=== PATIENT | female | born 1955 | race Caucasian/White ===

== ENCOUNTER 2018-01-11 00:58 | Inpatient (IN) | payer BC ==
[2018-01-10 13:34] LABS: INR 0.9
--- NOTE | 2018-01-10 19:59 | HISTORY AND PHYSICAL ---
DATE OF ADMISSION: January 11, 2018 IDENTIFICATION/CHIEF COMPLAINT Patrica is a 62-year-old woman with the chief complaint of left knee pain. HISTORY OF PRESENT ILLNESS The patient has a long-standing history of left knee arthritis, progressively painful and debilitating, refractory to conservative care. Surgery is indicated to relieve symptoms after failure of nonoperative measures. PAST MEDICAL HISTORY * Acid reflux disease. * Reactive airway disease, environmental allergen induced. * Remote history of bronchitis and pneumonia. . PAST SURGICAL HISTORY * Repair of hiatal hernia. * Cholecystectomy. * Hysterectomy. * Tonsillectomy. ALLERGIES * GLUTEN. * SOY. No known drug allergies. CURRENT MEDICATIONS * Nexium 40 mg p.o. q.day. * Bpem-mwk-ntyaauq Naproxen. * Djmn-tgh-pjyyths Tylenol. SOCIAL HISTORY Negative for tobacco and alcohol use. FAMILY HISTORY Notable for a brother with liver failure. REVIEW OF SYSTEMS Otherwise noncontributory. PHYSICAL EXAMINATION GENERAL: This is a healthy female. HEENT: Normocephalic, atraumatic. NECK: Supple. LUNGS: Clear. HEART: Regular. ABDOMEN: Soft. ORTHOPEDIC EXAM: Left knee has an effusion, crepitus is present. Stiff at the end range. Stability is good. Extensor function is intact. IMAGING Radiographs demonstrate end-stage knee arthritis. ASSESSMENT Left knee end-stage degenerative joint disease, progressively painful and debilitating, refractory to conservative care. PLAN Per patient request we are going to proceed with total knee arthroplasty. The nature of the procedure, risks, benefits and nonoperative alternatives were reviewed. The risks of the procedure include, but are not limited to , major medical or anesthetic complication, infection, neurovascular injury, blood transfusion, stiffness, scarring, fracture, tendon rupture or instability , implant loosening, migration or failure, persistent or recurrent pain, need for additional surgery and other unforeseen. She understands and wishes to proceed. A signed permit was placed in the chart. No guarantees are given or implied. JUAN
[~2018-01-11] VITALS: Ht 171.4 cm; Wt 125.2 kg
[2018-01-11] VITALS (14 sets, daily range): BP systolic 110–146; BP diastolic 63–82
[~2018-01-11 00:58] MED LIST: ACET-1966 PO; ESOM40CA42 PO; NAPR220C12 PO
[2018-01-11] MEDS ORDERED: ONDANSETRON 4 MG/2 ML VIAL ONE ×2 (07:59→10:11)
[2018-01-11] MEDS ORDERED: fentaNYL CITR 100 MCG/2 ML AMP ONE ×3 (07:59→13:05)
[2018-01-11] MEDS ORDERED: PROPOFOL EMUL(*) 10MG/ML 20 ML 20 ML ONE (07:59)
[2018-01-11] MEDS ORDERED: LIDOCAINE MPF 1% 5 ML VIAL ONE (07:59)
[2018-01-11] MEDS ORDERED: DEXAMETHASONE SOD 4 MG/ML VIAL ONE ×2 (07:59→10:12)
[2018-01-11] MEDS ORDERED: KETAMINE HCL 500 MG/10 ML VIAL ONE (08:02)
[2018-01-11] MEDS ORDERED: NORMOSOL R SOLN(*) 1000 ML BAG 1,000 ML IV PRN ×2 (08:45→12:30)
[2018-01-11] MEDS ORDERED: LIDOCAINE/SOD BICARB 8.4% SYR ID ONE (08:45)
[2018-01-11] MEDS ORDERED: MIDAZOLAM 2 MG/2 ML VIAL IVP PRN (08:45)
[2018-01-11] MEDS ORDERED: PREGABALIN 150 MG CAPSULE PO ONE (08:45)
[2018-01-11] MEDS ORDERED: TRANEXAMIC AC 1000 MG/10ML SDV 1,000 MG in DEXTROSE 5% 50 ML BAG 50 ML IV ONE (08:45)
[2018-01-11] MEDS ORDERED: ACETAMINOPHEN 500 MG TAB PO ONE (08:45)
[2018-01-11] MEDS ORDERED: cloNIDine EPIDUR INJ 100MCG/ML 40 MCG, ROPIVACAINE 0.5% 20 ML VIAL 25 ML, EPINEPHrine H... INJ ONE (08:45)
[2018-01-11] MEDS ORDERED: CELECOXIB 200 MG CAP PO ONE (08:45)
[2018-01-11] MEDS ORDERED: ceFAZolin(*) 2GM/D5W 50ML 50 ML IVPB ONE (08:45)
[2018-01-11] MEDS ORDERED: ZOLPIDEM TARTRATE 5 MG TAB PO PRN (12:30)
[2018-01-11] MEDS ORDERED: diphenhydrAMINE 25 MG CAP PO PRN (12:30)
[2018-01-11] MEDS ORDERED: ACETAMINOPHEN 325 MG TAB PO PRN (12:30)
[2018-01-11] MEDS ORDERED: BENZOCAINE/MENTHOL 1 EACH LOZG PO PRN (12:30)
[2018-01-11] MEDS ORDERED: diphenhydrAMINE 50 MG/ML VIAL IVP PRN (12:30)
[2018-01-11] MEDS ORDERED: FLUSH 10 ML SYR IVP PRN (12:30)
[2018-01-11] MEDS ORDERED: MAGNESIUM HYDROXIDE* 30ML UDCP PO PRN (12:30)
[2018-01-11] MEDS ORDERED: BISACODYL 10 MG SUPP PR PRN (12:30)
[2018-01-11] MEDS ORDERED: ALBUTEROL 8 GM INHALER INH PRN (14:05)
--- NOTE | 2018-01-11 14:14 | Hospitalist Consultation ---
History of Present Illness Requesting Physician Dr. Montiel Reason for Consult Medical Management Chief Complaint s/p left knee replacement History of Present Illness She was admitted s/p left knee replacement. It is reported the surgery went well and without complication. History Problems: (1) GERD (gastroesophageal reflux disease) Status: Chronic (2) Asthma due to environmental allergies Status: Chronic Home Meds Reported Medications Esomeprazole Magnesium (NEXIUM) 40 Mg Capsule.dr, 1 CAP PO QDAY, CAP 01/05/18 Acetaminophen (TYLENOL) 325 Mg Tablet, 650 MG PO Q8H Y for PAIN, TAB 01/05/18 Naproxen Sodium (ALEVE) 220 Mg Capsule, 440 MG PO BID Y for PAIN, CAPSULE 01/05/18 Allergies: Coded Allergies: No Known Drug Allergies (Unverified , 01/05/18) Patient History: Liver failure BROTHER OR SISTER Hx Smoking: No Caffeine Intake: Coffee, Tea, Soda Caffeine/Cups Per Day: 32 OZ DAILY OF COFFEE, 1 BOTTLE OF DIET PEPSI, OCC ICE TEA Hx Alcohol Use: No Hx Substance Use Disorder: No Social Drug Use: Never History of IV Drug Use: No Review of Systems All Systems Reviewed/Normal: Yes, Except as Noted Exam Vital Signs Vital Signs Date Time Temp Pulse Resp B/P (MAP) Pulse Ox O2 Delivery O2 Flow Rate FiO2 01/11/18 13:40 97.6 75 12 122/70 (87) 92 Room Air General Appearance: Alert, Awake, No Acute Distress, Afebrile Neuro: No Gross deficits Cardiovascular: Regular Rate and Rhythm Respiratory: No Respiratory Distress, Clear to Auscultation GI: Abd Soft and Non-Tender Extremities: Warm, Perfused Psych: Alert & Oriented X3, Appropriate Mood & Affect Assessment and Plan Problems: (1) Status post left knee replacement Status: Acute Assessment & Plan: Followed by Dr. Montiel. She will be placed on Aspirin 325mg daily for DVT prophylaxis. She has no history of DVT or PE. (2) GERD (gastroesophageal reflux disease) Status: Chronic Assessment & Plan: She is on chronic treatment with Nexium. She will be placed on Protonix during admission. (3) Asthma due to environmental allergies Status: Chronic Assessment & Plan: She uses albuterol inhaler as needed for allergies. Venous Thromboembolism Antithrombotics Is Pt On Any Antithrombotics?: No MARTINA MORRISON DOCUMENT MANAGEMENT SPECIALIST Jan 11, 2018 14:14
--- NOTE | 2018-01-11 14:25 | RADIOLOGY IMAGING REPORT ---
FACILITY: [facility] PATIENT NAME: Patrica Chou : 1955 MR: [id number] V: [id number] EXAM DATE: ORDERING PHYSICIAN: SONY CANTU TECHNOLOGIST: Location: [facility] Patient: Patrica Chou : 1955 Visit/Account:[id number] Date of Sevice: 01/11/2018 Exam type: KNEE LIMITED LEFT History: POST OP L TKA Comparison: None. Findings: AP and lateral views left knee history left knee arthroplasty in good anatomic alignment. Soft tissu e gas and skin issac project over the anterior aspect of the postoperative left knee IMPRESSION: 1. As above Report Dictated By: Marry Sierra MD at 01/11/2018 1:39 PM Report E-Signed By: Marry Sierra MD at 01/11/2018 2:21 PM WSN:[email or web address]
[2018-01-11] MEDS: APAP/HYDROCODONE 325/7.5 TAB PO PRN ×3 (14:27→23:26)
[2018-01-11] MEDS: PROMETHAZINE 25 MG/ML 1 ML AMP IVP PRN (14:45)
--- NOTE | 2018-01-11 16:22 | OPERATIVE REPORT 1 ---
EVENT DATE: January 11, 2018 SURGEON: Sunny Montiel MD ANESTHESIOLOGIST: Fabio Osman MD ANESTHESIA: General plus spinal. ETCHER APPRENTICE PHOTOENGRAVING: Narciso Sullivan PA-C PREOPERATIVE DIAGNOSIS Left knee degenerative joint disease. POSTOPERATIVE DIAGNOSIS Left knee degenerative joint disease. PROCEDURE PERFORMED Left total knee arthroplasty. ESTIMATED BLOOD LOSS Minimal. DRAINS None. SPECIMENS None. COMPLICATIONS None apparent. TOURNIQUET TIME 56 minutes IMPLANTS USED [employer] Triathlon knee system with 5 PS femur, 5 standard tibial baseplate, 33 mm universal, all-symmetric polyethylene patellar button, and 11 mm PS tibial tray liner. Polyethylene is X3. INDICATIONS Patrica is a 62-year-old woman with intractable pain and disability related to end- stage knee arthritis. Surgery is indicated to relieve symptoms and improve pain and function after failure of nonoperative measures. DESCRIPTION OF PROCEDURE Patient was taken to the operating room and placed supine on the operating table. Spinal block was administered by the anesthesiologist. General anesthesia was induced. Standard antibiotics and TXA were administered IV. The left lower extremity was prepped and draped in the usual sterile fashion for knee arthroplasty. Limb was exsanguinated with an Esmarch bandage. Tourniquet inflated to 275 mmHg. A midline longitudinal incision is made, carried down through the skin and fat to the extensor mechanism. Full- thickness flaps are developed far enough medially to allow medial parapatellar arthrotomy be performed. Patella is everted. Knee is brought into the flexed position. Fat pad, anterior horns of the menisci, and the cruciate ligaments are debrided. Subperiosteal medial released is initiated in a titrated fashion to start to balance the varus knee. A step drill is used to enter the distal femur. A 10-inch long alignment guide is used to engage the isthmus, cut set for 6 degrees of valgus relative to the anatomic axis. The 10 mm resection block is applied, pinned, and distal femoral cuts made with an oscillating saw. AP sizing guide is applied to the distal femoral cut, positioned for 3 degrees of external rotation relative to the posterior condyles. Size 5 is optimal without risk of notching. The four-in-one cutting block is applied. Anterior, posterior, posterior chamfer, and anterior chamfer cuts are made respectively. PS block is applied and centered. Medial and lateral bone is removed through the box. Trial femur has nice hzmy-zz-uhqb fit. Attention is turned to tibial preparation. The extramedullary guide is applied, positioned for varus, valgus, posterior slope, and rotation. This is set to take 9 mm from the relatively intact lateral tibial plateau. It is dropped down a millimeter or two to ensure an adequate cut. Block is pinned. Extramedullary alignment check is made. Cuts made with an oscillating saw. Osteophytes removed as well as junk in the posterior recess, and at this point, the gaps are fairly well balanced and symmetric with no additional releases required. The size 5 tibial baseplate provides optimum bony coverage without soft tissue overhang. This is loaded along with the trial liner and the trial femur. Knee is brought to full extension. Patella is taken from a starting thickness of 23 to a residual of 14 with a patellar clamp and oscillating saw. The 33 provides optimum bony coverage without soft tissue overhang. Lug holes are drilled. Patella tracks nicely with the no-touch technique. Final tibial preparation consists of assuring appropriate rotational and translational positioning of the component. The boss is reamed. Fin is punched. Surfaces are lavaged. Sclerotic bone medially is drilled with a small drill bit on the tibia to facilitate cement interdigitation. Mixed methacrylate is made, and all components cemented in a single stage. Once the cement is fully polymerized , tourniquet is deflated, and hemostasis is assured. Wound is copiously lavaged. The 11 PS tibial tray liner trial fills up the gap ideally, allowing the knee to drop to full extension without hyperextension, providing optimal soft tissue tension and stability. Tray is lavaged and dried, and the actual liner is locked into the baseplate. Joint is reduced. Arthrotomy is closed in flexion with #2 Ethibond, subcutaneous tissue with 3-0 Vicryl, skin with surgical issac, Xeroform and 4 x 4's applied as a dry, sterile dressing, and a compression wrap. The patient was awakened from anesthesia and taken to the recovery room in stable condition having tolerated the procedure well. Plan is for standard TKA rehab protocol. [facility]
[2018-01-11] MEDS ORDERED: CELECOXIB 200 MG CAP PO SCH (17:00)
[2018-01-11] MEDS: ceFAZolin(*) 1 GM VIAL 1 GM in NS(*) 0.9% 100 ML ADDVANT BAG 100 ML IVPB SCH (17:16)
[2018-01-12] MEDS: DIAZEPAM 5 MG TAB PO PRN ×4 (00:17→18:41)
[2018-01-12] MEDS: ceFAZolin(*) 1 GM VIAL 1 GM in NS(*) 0.9% 100 ML ADDVANT BAG 100 ML IVPB SCH ×2 (00:17→08:27)
[2018-01-12 03:45] VITALS: BP 110/64
[2018-01-12] MEDS: APAP/HYDROCODONE 325/7.5 TAB PO PRN ×4 (03:49→20:08)
[2018-01-12] MEDS ORDERED: KETOROLAC 15 MG/ML VIAL IVP ONE (06:55)
[2018-01-12 07:42] VITALS: BP 122/65
[2018-01-12] MEDS: ESOMEPRAZOLE MAGNESIUM 40 MG CAP PO SCH (08:27)
[2018-01-12] MEDS: ASPIRIN 325 MG TAB PO SCH (08:27)
[2018-01-12 08:53] VITALS: Ht 171.4 cm; Wt 125.2 kg
--- NOTE | 2018-01-12 10:34 | Hospitalist Progress Note ---
Subjective Progress Notes Subjective She has complaints of pain to the surgical site this morning. She had no acute events overnight. Patient Complains of: Cardiovascular: No: Chest Pain Respiratory: No: Shortness of Breath Physical Exam Vital Signs Date Time Temp Pulse Resp B/P (MAP) Pulse Ox O2 Delivery O2 Flow Rate FiO2 01/12/18 09:06 92 Nasal Cannula 1.0 01/12/18 07:42 97.9 75 16 122/65 (84) Intake and Output 01/13/18 01:00 Intake Total 340 ml Balance 340 ml Intake Oral 240 ml IV Total 100 ml General Appearance: Alert, Awake, No Acute Distress, Afebrile Neuro: No Gross deficits Cardiovascular: Regular Rate and Rhythm Respiratory: No Respiratory Distress, Clear to Auscultation Extremities: Warm, Perfused Psych: Alert & Oriented X3, Appropriate Mood & Affect Assessment and Plan Problems: (1) Status post left knee replacement Status: Acute Assessment & Plan: Followed by Dr. Montiel. She will be placed on Aspirin 325mg daily for DVT prophylaxis. She has no history of DVT or PE. (2) GERD (gastroesophageal reflux disease) Status: Chronic Assessment & Plan: She is on chronic treatment with Nexium. She will be placed on Protonix during admission. (3) Asthma due to environmental allergies Status: Chronic Assessment & Plan: She uses albuterol inhaler as needed for allergies. Exam Sepsis Risk: No Definite Risk MARTINA MORRISONP Jan 12, 2018 10:34
[2018-01-12 10:55] VITALS: BP 142/77
[2018-01-12 16:17] VITALS: BP 132/75
[2018-01-12] MEDS: CELECOXIB 200 MG CAP PO SCH (17:01)
[2018-01-12] MEDS: PATIENT'S OWN MED PO PRN (17:01)
[2018-01-12 19:43] VITALS: BP 119/72
[2018-01-12 23:27] VITALS: BP 126/72
[2018-01-13] MEDS: DIAZEPAM 5 MG TAB PO PRN ×3 (01:28→17:27)
[2018-01-13] MEDS: APAP/HYDROCODONE 325/7.5 TAB PO PRN ×4 (02:44→20:01)
[2018-01-13 02:46] VITALS: BP 114/64
[2018-01-13 07:27] VITALS: BP 113/67
[2018-01-13] MEDS: ASPIRIN 325 MG TAB PO SCH (08:46)
[2018-01-13] MEDS: CELECOXIB 200 MG CAP PO SCH ×2 (08:46→17:28)
[2018-01-13] MEDS: PATIENT'S OWN MED PO PRN (08:47)
[2018-01-13] MEDS: ESOMEPRAZOLE MAGNESIUM 40 MG CAP PO SCH (09:00)
--- NOTE | 2018-01-13 11:34 | Hospitalist Progress Note ---
Subjective Progress Notes Subjective She reports she has had a difficult time sleeping since she has been admitted. She had no acute events overnight. Patient Complains of: Cardiovascular: No: Chest Pain Respiratory: No: Shortness of Breath Physical Exam Vital Signs Date Time Temp Pulse Resp B/P (MAP) Pulse Ox O2 Delivery O2 Flow Rate FiO2 01/13/18 10:00 92 Nasal Cannula 0.5 01/13/18 07:27 98.1 77 16 113/67 (82) Intake and Output 01/14/18 01:00 Intake Total 240 ml Balance 240 ml Intake Oral 240 ml # Voids 2 General Appearance: Alert, Awake, No Acute Distress, Afebrile Neuro: No Gross deficits Cardiovascular: Regular Rate and Rhythm Respiratory: No Respiratory Distress, Clear to Auscultation GI: Soft and Non-Tender Psych: Alert & Oriented X3, Appropriate Mood & Affect Assessment and Plan Problems: (1) Status post left knee replacement Status: Acute Assessment & Plan: Followed by Dr. Montiel. She will be placed on Aspirin 325mg daily for DVT prophylaxis. She has no history of DVT or PE. We will add Melatonin for patient sleep. (2) GERD (gastroesophageal reflux disease) Status: Chronic Assessment & Plan: She is on chronic treatment with Nexium. She will be placed on Protonix during admission. (3) Asthma due to environmental allergies Status: Chronic Assessment & Plan: She uses albuterol inhaler as needed for allergies. Exam Sepsis Risk: No Definite Risk MARTINA MORRISON MOLD OPERATOR Jan 13, 2018 11:34
[2018-01-13] MEDS ORDERED: MELATONIN 3 MG TAB PO PRN (11:35)
[2018-01-13 17:05] VITALS: BP 130/71
[2018-01-13 19:03] VITALS: BP 128/63
[2018-01-14] MEDS: APAP/HYDROCODONE 325/7.5 TAB PO PRN ×3 (00:26→12:13)
[2018-01-14 00:27] VITALS: BP 121/68
[2018-01-14 05:11] VITALS: BP 127/72
[2018-01-14 08:04] VITALS: BP 110/80
[2018-01-14] MEDS: ESOMEPRAZOLE MAGNESIUM 40 MG CAP PO SCH (08:27)
[2018-01-14] MEDS: ASPIRIN 325 MG TAB PO SCH (08:27)
[2018-01-14] MEDS: CELECOXIB 200 MG CAP PO SCH (08:27)
[2018-01-14] MEDS ORDERED: DIA5 PO (09:09)
[2018-01-14] MEDS ORDERED: HYDR-4308 PO (09:09)
[2018-01-14] MEDS ORDERED: CELE-1 PO (09:10)
[2018-01-14] MEDS ORDERED: OXYC-823 PO (09:10)
--- NOTE | 2018-01-14 09:35 | Hospitalist Progress Note ---
Subjective Progress Notes Subjective She has no complaints this morning. She had no acute events overnight. Patient Complains of: Cardiovascular: No: Chest Pain Respiratory: No: Shortness of Breath Physical Exam Vital Signs Date Time Temp Pulse Resp B/P (MAP) Pulse Ox O2 Delivery O2 Flow Rate FiO2 01/14/18 08:04 97.8 75 12 110/80 (90) 97 Room Air 01/14/18 05:11 1.0 Intake and Output 01/15/18 07:00 Intake Total 300 ml Balance 300 ml Intake Oral 300 ml # Voids 1 General Appearance: Alert, Awake, No Acute Distress, Afebrile Neuro: No Gross deficits Cardiovascular: Regular Rate and Rhythm Respiratory: No Respiratory Distress, Clear to Auscultation GI: Soft and Non-Tender Psych: Alert & Oriented X3, Appropriate Mood & Affect Assessment and Plan Problems: (1) Status post left knee replacement Status: Acute Assessment & Plan: Followed by Dr. Montiel. She will be placed on Aspirin 325mg daily for DVT prophylaxis. She has no history of DVT or PE. (2) GERD (gastroesophageal reflux disease) Status: Chronic Assessment & Plan: She is on chronic treatment with Nexium. (3) Asthma due to environmental allergies Status: Chronic Assessment & Plan: She uses albuterol inhaler as needed for allergies. Exam Sepsis Risk: No Definite Risk MARTINA MORRISONP Jan 14, 2018 09:35
[2018-01-14] MEDS: PROMETHAZINE 25 MG/ML 1 ML AMP IVP PRN (11:37)
== END 2018-01-14 12:30 | disposition home or self-care (01) | DRG 470 ==
LOC: OR 00:58 → INTOOBSV 13:35 → MED 13:35 → OBSVTOIN 13:35
PROVIDERS: ADMIT Orthopaedic Surgery; ATTEND Orthopaedic Surgery
PROC: 0SRD0J9 Replacement of Left Knee Joint with Synthetic Substitute, Cemented, Open Approach (ICD-10-PCS; principal; 2018-01-11 09:59)
DX: M17.12 Unilateral primary osteoarthritis, left knee (principal); K21.9 Gastro-esophageal reflux disease without esophagitis; J45.909 Unspecified asthma, uncomplicated; Z90.49 Acquired absence of other specified parts of digestive tract; Z90.710 Acquired absence of both cervix and uterus
CPT/HCPCS: 36415; 85610; 86850; 86900; 86901; 97162; J0171; J0690; J0735; J1100; J1885; J2001; J2250; J2405; J2550; J2704; J2795; J3010; J3490; J3535; J7050; J7060

== ENCOUNTER 2018-10-18 00:06 | Inpatient (IN) | payer BC ==
[2018-01-12 08:53] VITALS: Ht 171.4 cm; Wt 128.0 kg
[2018-10-17 14:13] LABS: INR 0.95
[~2018-10-18] VITALS: Ht 171.4 cm; Wt 128.0 kg
[2018-10-18] VITALS (20 sets, daily range): BP systolic 89–144; BP diastolic 51–111
[~2018-10-18 00:06] MED LIST changes: +CELE-1 PO; +DIA5 PO; +FEXO1TAB60 PO; +HYDR-654 PO; +HYLAND'S LEG CRAMPS PO; +OXYC-823 PO
--- NOTE | 2018-10-18 01:22 | LEVENE H&P ---
DATE OF ADMISSION: October 18, 2018 IDENTIFICATION/CHIEF COMPLAINT Patrica is a 63-year-old woman with a chief complaint of right knee pain. HISTORY OF PRESENT ILLNESS Patient has a longstanding history of bilateral knee arthritis. She has had successful left knee replacement. Her right knee has become intractable painful and debilitating, refractory to conservative measures. Surgery is indicated to relieve pain. PAST MEDICAL HISTORY Notable for history of asthma, remote history of bronchitis and pneumonia. ALLERGIES 1. GLUTEN. 2. SOY. No drug allergies. CURRENT MEDICATIONS 1. Naproxen b.i.d. 2. Nexium 40 mg per day. 3. Tylenol as needed. 4. Some bxoc-mon-zrbjocq medicine for leg cramps. PAST SURGICAL HISTORY Notable for hiatal hernia, cholecystectomy, oophorectomy, tonsillectomy, contralateral knee replacement. FAMILY HISTORY Notable for mother with orthopedic problems and brother with liver disease. SOCIAL HISTORY Negative for tobacco and alcohol use. REVIEW OF SYSTEMS Unremarkable. PHYSICAL EXAMINATION GENERAL: This is a healthy female. She appears her stated age. HEENT: She is normocephalic, atraumatic. NECK: Supple. LUNGS: Clear. HEART: Regular. ABDOMEN: Soft. ORTHOPEDIC: The right knee is stiff. She has varus alignment. She has an effusion present. She has slight valgus pseudolaxity with a nice endpoint. Extensor function is intact. Radiographs demonstrate end-stage medial compartment degenerative joint disease with relative sparing of the lateral and patellofemoral compartments. ASSESSMENT Right knee end-stage degenerative joint disease, refractory to conservative care. PLAN Patrica and I again today went over all the options for surgical and nonsurgical treatment. She has elected to proceed with total knee arthroplasty. Nature of the procedure, risks, benefits, and the anticipated rehab course are outlined. Risks include but are not limited to , major medical or anesthetic complication, infection, neurovascular injury, blood transfusion, stiffness, scarring, fracture, tendon rupture, instability, implant loosening, migration, or failure, persistent or recurrent pain, need for additional surgery, other unforeseen. She understands and wishes to proceed. A signed permit is placed in the chart. No guarantees are given or implied. [facility]
[2018-10-18] MEDS ORDERED: fentaNYL CITR 100 MCG/2 ML AMP ONE (06:35)
[2018-10-18] MEDS ORDERED: PROPOFOL EMUL(*) 10MG/ML 20 ML 20 ML ONE (06:36)
[2018-10-18] MEDS ORDERED: KETAMINE HCL-NS 50 MG/5 ML SYR ONE (06:36)
[2018-10-18] MEDS ORDERED: LIDOCAINE MPF 1% 5 ML VIAL ONE (06:36)
[2018-10-18] MEDS ORDERED: DEXAMETHASONE SOD PHOS 10MG/ML ONE (06:36)
[2018-10-18] MEDS ORDERED: ONDANSETRON 4 MG/2 ML VIAL ONE (06:36)
[2018-10-18] MEDS ORDERED: VANCOMYCIN 1 GM VIAL ONE (07:13)
[2018-10-18] MEDS ORDERED: SCOPOLAMINE 1.5 MG PATCH TD ONE (07:15)
[2018-10-18] MEDS ORDERED: PHENYLEPHRINE 10 MG/1 ML VIAL ONE (07:28)
[2018-10-18] MEDS ORDERED: PREGABALIN 150 MG CAPSULE PO ONE (07:30)
[2018-10-18] MEDS ORDERED: ACETAMINOPHEN 500 MG TAB PO ONE (07:30)
[2018-10-18] MEDS ORDERED: LIDOCAINE/SOD BICARB 8.4% SYR ID ONE (07:30)
[2018-10-18] MEDS ORDERED: CELECOXIB 200 MG CAP PO ONE (07:30)
[2018-10-18] MEDS ORDERED: ceFAZolin(*) 2GM/D5W 50ML 50 ML IVPB ONE (07:30)
[2018-10-18] MEDS ORDERED: ROPIVACAINE/EPI/CLONIDINE/KET 50 ML SYRINGE INJ ONE (07:30)
[2018-10-18] MEDS ORDERED: NORMOSOL R SOLN(*) 1000 ML BAG 1,000 ML IV PRN ×2 (07:30→10:40)
[2018-10-18] MEDS ORDERED: MIDAZOLAM 2 MG/2 ML VIAL IVP PRN (07:30)
[2018-10-18] MEDS ORDERED: TRANEXAMIC AC 1000 MG/10ML SDV 1,000 MG in DEXTROSE 5% 50 ML BAG 50 ML IV ONE (07:30)
--- NOTE | 2018-10-18 10:05 | OPERATIVE REPORT 1 ---
EVENT DATE: October 18, 2018 SURGEON: Sunny Montiel MD ANESTHESIOLOGIST: Eddie Frazier MD ANESTHESIA: General plus spinal. BROWN SOURER: GIBRAN Doherty, RETAIL SERVICE TECHNICIAN PREOPERATIVE DIAGNOSIS Right knee degenerative joint disease. POSTOPERATIVE DIAGNOSIS Right knee degenerative joint disease. PROCEDURE PERFORMED Right total knee arthroplasty. ESTIMATED BLOOD LOSS Minimal. DRAINS None. SPECIMENS None. COMPLICATIONS None apparent. TOURNIQUET TIME 39 minutes. IMPLANTS USED [employer] Triathlon system with a 5 right PS femur, 5 standard tibial baseplate, 33 mm universal symmetric all polyethylene patellar button and a 13 mm PS tibial liner, polyethylene x3. INDICATION Patrica is a 61-year-old woman with intractable pain related to end-stage knee arthritis. Surgery is indicated to relieve symptoms after failure of nonoperative measures. DESCRIPTION OF PROCEDURE The patient was taken to the operating room, placed supine on the operating table. Spinal block was administered by the anesthesiologist. General anesthesia was induced, antibiotics and TXA were administered IV. The right lower extremity was prepped and draped in the usual sterile fashion for knee arthroplasty. The limb was exsanguinated with an Esmarch bandage. The tourniquet was inflated to 300 mmHg. A midline longitudinal incision was made and carried down through the skin and subcutaneous tissue to the extensor mechanism. A full-thickness flap was developed far enough medially to allow medial parapatellar arthrotomy to be performed. The patella was everted. The knee was brought into a flexed position. The fat pad, anterior horns of the menisci and cruciate ligaments were debrided. Subperiosteal medial release was initiated in a gentle titrated fashion to start to balance the knee. A step drill was used to enter the distal femur. A 10-inch long alignment guide was used to engage the isthmus. Cut was set for degrees of valgus relative to the anatomic axis. A 10 mm resection block was applied and pinned. Distal femoral cut was made with an oscillating saw. AP sizing guide was applied to the distal cut and positioned for 3 degrees of external rotation relative to the posterior condyles. A size 5 was optimal without risk of notching. A four-in-one cutting block was applied. Anterior, posterior, posterior chamfer and anterior chamfer cuts were made respectively. A PS block was applied and centered mediolateral. Bone was removed from the box. Trial femur has nice fit. Attention was turned to the tibial preparation. The extramedullary alignment guide was applied and positioned for varus, valgus, posterior slope and rotation. This was set to take 9 mm from the relatively intact lateral tibial plateau. It was dropped down a couple more millimeters to assure an adequate cut. Block was pinned. Extramedullary alignment check was made and the cut was made with an oscillating saw. Osteophytes and posterior bone were removed along with any meniscal remnants. Gaps were balanced and symmetric with no additional releases required. The 5 tibial baseplate provided optimal bony coverage without soft tissue overhang. This was inserted along with a trial liner and trial femur. The knee was brought into extension. Patella was taken from the starting thickness of 22 mm to a residual of 14 with the patellar clamp and oscillating saw. The 33 provides optimal bony coverage without soft tissue overhang. Lug holes were drilled and this tracks nicely with a no-touch technique. Final tibial preparation consisted of ensuring appropriate rotational and translational position of the component. The box was reamed and the fin was punched. Surface was lavaged. A mix of polymethylmethacrylate was made and the components were cemented in a single stage. Once the cement was fully polymerized, the tourniquet was deflated and meticulous hemostasis was assured. The wound was copiously lavaged. A 13 PS tibial tray liner fills up the gap ideally, allowing the knee to drop to full extension without hyperextension, providing optimal soft tissue tension and stability. The baseplate was lavaged and dried, and the actual liner was locked into the baseplate. The joint was reduced. The arthrotomy was closed in flexion with #2 Ethibond, subcutaneous tissue with 3-0 Vicryl and the skin with a ZipLine closure. Xeroform was applied followed by a dry, sterile dressing and a compression wrap. The patient was awakened from the anesthesia and taken to the recovery room in stable condition, having tolerated the procedure well. Plan is for standard rehab per TKA protocol. [facility]
--- NOTE | 2018-10-18 10:22 | RADIOLOGY IMAGING REPORT ---
FACILITY: [facility] PATIENT NAME: Patrica Chou : 1955 MR: [id number] V: [id number] EXAM DATE: ORDERING PHYSICIAN: SONY CANTU TECHNOLOGIST: Location: [facility] [place] Patient: Patrica Chou : 1955 Visit/Account:[id number] Date of Sevice: 10/18/2018 KNEE LIMITED RIGHT Indication: Status post total knee arthroplasty. Comparison: None available Findings: 2 views right knee were obtained. Post surgical changes from right knee arthroplasty. No evidence for hardware complication. The knee is an articulating alignment. There is a small amount of postoperative intra-articular and subcutan eous gas/fluid. IMPRESSION: 1. Unremarkable postoperative appearance of right knee arthroplasty. Report Dictated By: Timi Owens MD at 10/18/2018 10:17 AM Report E-Signed By: Timi Owens MD at 10/18/2018 10:18 AM WSN:[email or web address]
[2018-10-18] MEDS ORDERED: MAGNESIUM HYDROXIDE* 30ML UDCP PO PRN (10:40)
[2018-10-18] MEDS ORDERED: BENZOCAINE/MENTHOL 1 EACH LOZG PO PRN (10:40)
[2018-10-18] MEDS ORDERED: FLUSH 10 ML SYR IVP PRN (10:40)
[2018-10-18] MEDS ORDERED: diphenhydrAMINE 50 MG/ML VIAL IVP PRN (10:40)
[2018-10-18] MEDS ORDERED: diphenhydrAMINE 25 MG CAP PO PRN (10:40)
[2018-10-18] MEDS ORDERED: ZOLPIDEM TARTRATE 5 MG TAB PO PRN (10:40)
[2018-10-18] MEDS ORDERED: PROMETHAZINE 25 MG/ML 1 ML AMP IVP PRN (10:40)
[2018-10-18] MEDS ORDERED: BISACODYL 10 MG SUPP PR PRN (10:40)
[2018-10-18] MEDS ORDERED: ACETAMINOPHEN 325 MG TAB PO PRN (10:40)
[2018-10-18] MEDS ORDERED: PATIENT'S OWN MED PO PRN (11:00)
[2018-10-18] MEDS ORDERED: ALBUTEROL 2.5 MG/3 ML NEB NEB PRN (11:00)
[2018-10-18] MEDS: APAP/HYDROCODONE 325/7.5 TAB PO PRN ×3 (11:07→19:12)
--- NOTE | 2018-10-18 11:07 | Hospitalist Progress Note ---
Subjective Progress Notes Subjective Patient seen post-op. Reviewed PMHx (asthma/bronchitis, GERD, leg cramps) and medications (albuterol, Nexium, Leg Cramp Formula). She reports some surgical site pain, but denies any CP/SOB/nausea. Physical Exam Vital Signs Date Time Temp Pulse Resp B/P (MAP) Pulse Ox O2 Delivery O2 Flow Rate FiO2 10/18/18 10:47 98.0 70 16 109/72 (84) 94 Nasal Cannula 2.0 General Appearance: Alert, Awake Cardiovascular: Regular Rate and Rhythm Respiratory: Clear to Auscultation Assessment and Plan Problems: (1) GERD (gastroesophageal reflux disease) Status: Chronic Assessment & Plan: Will continue her PPI therapy (Protonix while here). (2) Asthma due to environmental allergies Status: Chronic Assessment & Plan: She has been using albuterol as needed. (3) S/P knee replacement Status: Acute Assessment & Plan: She appears stable post-op. She did well with her left knee replacement. She will be on aspirin 325mg daily (x30-35 days) for DVT prophylaxis. Problem Qualifiers (1) S/P knee replacement: Laterality: right Qualified Codes: Z96.651 - Presence of right artificial knee joint KATHY MCKEON MD October 18, 2018 11:07
[2018-10-18] MEDS ORDERED: FEXO-72 PO (11:28)
[2018-10-18] MEDS: DIAZEPAM 5 MG TAB PO PRN (13:02)
[2018-10-18] MEDS ORDERED: NS(*) 0.9% 250 ML BAG 250 ML ONE (16:11)
[2018-10-18] MEDS: ceFAZolin(*) 1 GM VIAL 1 GM in NS(*) 0.9% 100 ML MINI-BAG 100 ML IVPB SCH (16:42)
[2018-10-18] MEDS: MORPHINE 2 MG/ML SYR IVP PRN (17:08)
[2018-10-18] MEDS: CELECOXIB 200 MG CAP PO SCH (17:08)
[2018-10-18] MEDS: PATIENT'S OWN MED PO PRN (20:03)
[2018-10-19] VITALS (7 sets, daily range): BP systolic 98–128; BP diastolic 52–67
[2018-10-19] MEDS: ceFAZolin(*) 1 GM VIAL 1 GM in NS(*) 0.9% 100 ML MINI-BAG 100 ML IVPB SCH ×2 (00:26→08:33)
[2018-10-19] MEDS: APAP/HYDROCODONE 325/7.5 TAB PO PRN ×5 (00:31→20:02)
[2018-10-19] MEDS ORDERED: LEVALBUTEROL 0.63 MG/3 ML NEB NEB PRN (08:00)
[2018-10-19] MEDS: DIAZEPAM 5 MG TAB PO PRN ×3 (08:06→23:08)
[2018-10-19] MEDS: CELECOXIB 200 MG CAP PO SCH ×2 (08:33→16:57)
[2018-10-19] MEDS: PANTOPRAZOLE SOD 40 MG TABEC PO SCH (08:34)
[2018-10-19] MEDS: ASPIRIN 325 MG TAB PO SCH (08:34)
[2018-10-19] MEDS: FEXOFENADINE HCL 60 MG TAB PO SCH ×2 (09:07→21:11)
[2018-10-19] MEDS: MORPHINE 2 MG/ML SYR IVP PRN (09:40)
--- NOTE | 2018-10-19 11:10 | Hospitalist Progress Note ---
Subjective Progress Notes Subjective She was admitted s/p knee replacement. She requests nebulizer treatments to be ordered as needed for wheezing. Otherwise, she has no complaints. Patient Complains of: Cardiovascular: No: Chest Pain Respiratory: Wheezing; No: Shortness of Breath Physical Exam Vital Signs Date Time Temp Pulse Resp B/P (MAP) Pulse Ox O2 Delivery O2 Flow Rate FiO2 10/19/18 10:44 94 Nasal Cannula 1.0 10/19/18 10:44 76 16 10/19/18 07:39 98.1 100/60 (73) Intake and Output 10/19/18 01:00 Intake Total 4875 ml Output Total 501 ml Balance 4374 ml Intake Oral 2650 ml IV Total 2225 ml Output Urine Total 1 ml Estimated Blood Loss 500 ml # Voids 1 General Appearance: Alert, Awake, No Acute Distress, Afebrile Neuro: No Gross deficits Cardiovascular: Regular Rate and Rhythm Respiratory: No Respiratory Distress, Other (right expiratory wheezes present) GI: Soft and Non-Tender Psych: Alert & Oriented X3, Appropriate Mood & Affect Assessment and Plan Problems: (1) GERD (gastroesophageal reflux disease) Status: Chronic Assessment & Plan: Will continue her PPI therapy (Protonix while here). (2) Asthma due to environmental allergies Status: Chronic Assessment & Plan: She has been using albuterol as needed. Will add Xopenex nebs also. (3) S/P knee replacement Status: Acute Assessment & Plan: She appears stable post-op. She did well with her left knee replacement. She will be on aspirin 325mg daily (x30-35 days) for DVT prophylaxis. Exam Sepsis Risk: No Definite Risk Problem Qualifiers (1) S/P knee replacement: Laterality: right Qualified Codes: Z96.651 - Presence of right artificial knee joint MARTINA MORRISON FL[employer] SERVICE SPECIALIST October 19, 2018 11:10
--- NOTE | 2018-10-19 20:55 | NUR ---
Physical Therapy Impression Pt requires Min A for R LE supine>sit, CGA to stand from the bed and toilet, and CGA to ambulate 50' with 2 seated rest breaks. Pt reports dizziness with ambulation which improved with rest. SO2 and P WNL during ambulation on 2 L O2. Physical Therapy Goals 1. Pt to be Min/CGA with bed mobility and sup<>Sit trnsfrs 2. Pt to be CGA/SBA for sit to/from stand transfers 3. Pt to ambulate with least restrictive device x 100' with SBA/Mod Indep 4. Pt to osirsi up/down 4 steps with rail and CGA/SBA Patient's Goals
--- NOTE | 2018-10-19 20:58 | NUR ---
Physical Therapy Impression Pt with improved pain and tolerance to activity this PM. Recommend OP PT at [facility]. Physical Therapy Goals 1. Pt to be Min/CGA with bed mobility and sup<>Sit trnsfrs 2. Pt to be CGA/SBA for sit to/from stand transfers 3. Pt to ambulate with least restrictive device x 100' with SBA/Mod Indep 4. Pt to osiris up/down 4 steps with rail and CGA/SBA Patient's Goals
[2018-10-19] MEDS: DOCUSATE SODIUM 100 MG CAP PO SCH (21:11)
[2018-10-19] MEDS: PATIENT'S OWN MED PO PRN (21:12)
[2018-10-20] MEDS: APAP/HYDROCODONE 325/7.5 TAB PO PRN ×4 (00:14→13:31)
[2018-10-20 04:24] VITALS: BP 123/60
[2018-10-20] MEDS: DIAZEPAM 5 MG TAB PO PRN ×2 (06:10→12:19)
[2018-10-20 07:14] VITALS: BP 115/56
[2018-10-20] MEDS: DOCUSATE SODIUM 100 MG CAP PO SCH (08:45)
[2018-10-20] MEDS: CELECOXIB 200 MG CAP PO SCH (08:45)
[2018-10-20] MEDS: ASPIRIN 325 MG TAB PO SCH (08:45)
[2018-10-20] MEDS: PANTOPRAZOLE SOD 40 MG TABEC PO SCH (08:45)
[2018-10-20] MEDS ORDERED: HYDR-654 PO (09:10)
[2018-10-20] MEDS ORDERED: CELE-1 PO (09:11)
[2018-10-20] MEDS: FEXOFENADINE HCL 60 MG TAB PO SCH (09:19)
--- NOTE | 2018-10-20 11:07 | NUR ---
Physical Therapy Impression PT goals met; from a mobility stand point pt is ready for d/c home with out pt PT as scheduled. Monitored O2 sats during therapy. Pt decreased to 83% with breath holding during concentration on stairs, but was able to recover to 95% or better with deep slow breaths. Physical Therapy Goals 1. Pt to be Min/CGA with bed mobility and sup<>Sit trnsfrs 2. Pt to be CGA/SBA for sit to/from stand transfers 3. Pt to ambulate with least restrictive device x 100' with SBA/Mod Indep 4. Pt to osiris up/down 4 steps with rail and CGA/SBA Patient's Goals
[2018-10-20 11:26] VITALS: BP 109/63
[2018-10-20] MEDS ORDERED: ASPI-757 PO (11:45)
--- NOTE | 2018-10-20 12:16 | Hospitalist Progress Note ---
Subjective Progress Notes Subjective She was admitted s/p knee replacement. She has no complaints this morning. She had no acute events overnight. Patient Complains of: Cardiovascular: No: Chest Pain Respiratory: No: Shortness of Breath Physical Exam Vital Signs Date Time Temp Pulse Resp B/P (MAP) Pulse Ox O2 Delivery O2 Flow Rate FiO2 10/20/18 11:36 77 10/20/18 11:26 98.3 89 20 109/63 (78) Room Air 10/20/18 08:11 2.0 Intake and Output 10/20/18 07:00 Intake Total 3120 ml Balance 3120 ml Intake Oral 3020 ml IV Total 100 ml # Voids 6 General Appearance: Alert, Awake, No Acute Distress, Afebrile Neuro: No Gross deficits Cardiovascular: Regular Rate and Rhythm Respiratory: No Respiratory Distress, Clear to Auscultation GI: Soft and Non-Tender Psych: Alert & Oriented X3, Appropriate Mood & Affect Assessment and Plan Problems: (1) GERD (gastroesophageal reflux disease) Status: Chronic Assessment & Plan: Will continue her PPI therapy (Protonix while here). (2) Asthma due to environmental allergies Status: Chronic Assessment & Plan: She has been using albuterol as needed. Will add Xopenex nebs also. She will be sent home with oxygen. Tried multiple room air trials, which dropped to 78%. She will follow up next week with PCP. (3) S/P knee replacement Status: Acute Assessment & Plan: She appears stable post-op. She did well with her left knee replacement. She will be on aspirin 325mg daily (x30-35 days) for DVT prophylaxis. Exam Sepsis Risk: No Definite Risk Problem Qualifiers (1) S/P knee replacement: Laterality: right Qualified Codes: Z96.651 - Presence of right artificial knee joint MARTINA MORRISON [employer]IZATION DIRECTOR October 20, 2018 12:16
== END 2018-10-20 15:30 | disposition home or self-care (01) | DRG 470 ==
LOC: OR 00:06 → MED 10:40
PROVIDERS: ADMIT Orthopaedic Surgery; ATTEND Orthopaedic Surgery
PROC: 0SRC0J9 Replacement of Right Knee Joint with Synthetic Substitute, Cemented, Open Approach (ICD-10-PCS; principal; 2018-10-18 07:12)
DX: M17.11 Unilateral primary osteoarthritis, right knee (principal); Z68.41 Body mass index [BMI] 40.0-44.9, adult; M21.061 Valgus deformity, not elsewhere classified, right knee; K21.9 Gastro-esophageal reflux disease without esophagitis; E66.01 Morbid (severe) obesity due to excess calories; J45.909 Unspecified asthma, uncomplicated; K58.9 Irritable bowel syndrome, unspecified; Z90.710 Acquired absence of both cervix and uterus; Z90.49 Acquired absence of other specified parts of digestive tract; Z91.02 Food additives allergy status; Z96.652 Presence of left artificial knee joint
CPT/HCPCS: 36415; 85610; 86850; 86900; 86901; 94640; 97161; C1713; C1776; J0690; J1100; J2001; J2250; J2270; J2370; J2405; J2704; J3010; J3370; J3490; J7060; J7613; J7614